=== PATIENT | male | born 1930 | race Caucasian/White ===

== ENCOUNTER → 2018-05-07 | Outpatient (CLI) | payer OTHER, MEDICARE ==
[2018-05-07 15:24] LABS: CLARITY CLOUDY; COLOR RED; SOURCE RT CHEST; TOTAL VOLUME 60 mL
[2018-05-07 16:01] LABS: BF NUCLEATED CELLS 404; BF RBC 12730
[2018-05-07 16:29] LABS: BF NEUTROPHILS 11
[2018-05-07 16:35] LABS: BF MACROPHAGE 16
[2018-05-08 08:44] LABS: SOURCE PLEURAL
[2018-05-08 14:06] LABS: BODY FLUID ALBUMIN 0.9 g/dL (()); BODY FLUID AMYLASE 70 U/L (()); BODY FLUID GLUCOSE 111 mg/dL (()); BODY FLUID LDH 95 IU/L (())
== END | disposition home or self-care (01) ==
LOC: ULTRA 13:01
PROVIDERS: Family Medicine
DX: J90 Pleural effusion, not elsewhere classified (principal)